=== PATIENT | male | born 1965 | race Caucasian/White ===

== ENCOUNTER → 2024-08-18 | Outpatient (CLI) | payer OTHER ==
[2024-08-18 15:19] LABS: HCT 51.3 % (39.6-50.0); HGB 17.4 g/dL (13.0-17.0); MCH 30.7 pg (27.0-32.0); MCHC 33.9 g/dL (32.0-37.0); MCV 90.6 FL (80.0-97.0); Mean Platelet Volume 10.3 FL (9.5-12.2); NRBC Per 100 WBC 0 X 10*3/uL (0.00-0.01); Platelet Count 305 X 10*3/uL (140-440); RBC 5.66 X 10*6/uL (4.40-5.60); RDW 12.4 % (11.5-14.5); WBC 6.76 X 10*3/uL (4.50-10.00)
[2024-08-18 15:33] LABS: ALT 37 U/L (10-49); AST 26 U/L (14-35); Albumin 4.5 g/dL (3.8-4.9); Alkaline Phosphatase 85 U/L (41-126); BUN/Creat Ratio 13.67 Ratio (12.00-20.00); Blood Urea Nitrogen 16.4 mg/dL (9.0-27.0); Calcium 9.6 mg/dL (8.7-10.3); Carbon Dioxide 25.7 mmol/L (21.6-31.8); Chloride 103 mmol/L (96-109); Globulin 2.5 g/dL (1.6-3.3); Glucose 103 mg/dL (70-110); LDL Cholesterol,Calculated 97.6 mg/dL (0.0-131.0); Potassium 4.3 mmol/L (3.5-5.5); Prostate Specific Antigen 4.22 ng/mL (0.000-4.500); Sodium 141 mmol/L (135-145); Total Bilirubin 1.3 mg/dL (0.3-1.2)
== END | disposition home or self-care (01) ==
LOC: LABWHC1 10:34
PROVIDERS: ATTEND Family Medicine
DX: Z00.01 Encounter for general adult medical examination with abnormal findings (principal)
CPT/HCPCS: 36415; 80053; 80061; 84153; 85027